=== PATIENT | male | born 1980 | race Caucasian/White ===

== ENCOUNTER 2020-06-12 22:38 | Emergency (ER) | payer OTHER ==
[~2020-06-12] VITALS: Ht 175.3 cm; Wt 79.4 kg
[2020-06-12 22:40] VITALS: BP 146/82; Ht 175.3 cm; Wt 79.4 kg
== END 2020-06-13 00:39 | disposition left against medical advice (07) ==
LOC: ED 22:38
DX: Z53.21 Procedure and treatment not carried out due to patient leaving prior to being seen by health care provider (principal)
CPT/HCPCS: J2704